=== PATIENT | female | born 1970 | race Caucasian/White ===

== ENCOUNTER 2017-04-03 13:14 | Emergency (ER) | payer OTHER ==
[~2017-04-03] VITALS: Ht 167.6 cm; Wt 80.8 kg
[~2017-04-03 13:14] MED LIST: BUPR1SUB SL; LAMO150T PO; MEDLIST; UNABLE
[2017-04-03 13:24] VITALS: TEMP 36.8; Ht 167.6 cm; Wt 80.8 kg
[2017-04-03] MEDS ORDERED: BUPR1SUB23 PEG (13:57)
[2017-04-03] MEDS ORDERED: PHEN37.585 PO (13:57)
--- NOTE | 2017-04-03 14:11 | EMERGENCY ROOM VISIT NOTE ---
History First contact with patient: 13:54 Chief Complaint: FLANK PAIN Stated Complaint: RIGHT SIDE PAIN History of Present Illness The patient is a 46 year old female who presents to the Emergency Room with complaints of right-sided abdominal pain that started yesterday morning. She describes as a sharp, stabbing sensation that is constant in the right side of her abdomen radiating to her back. She denies any nausea or vomiting. No fever or chills. She does suffer with from constipation. She is unsure of her last bowel movement. She has not taken anything for pain. She denies any urinary symptoms. Review of Systems 10 system review performed and negative unless noted in HPI or below Past Medical/Surgical History History of drug abuse Social History Smoking Status: Current Every Day Smoker Current/Historical Medications Scheduled Buprenorphine Hcl-Naloxone Hcl (Suboxone 8-2 Mg), 1 TAB PEG BID Phentermine Hcl (Adipex P), 37.5 MG PO DAILY Scheduled PRN Oxycodone Ir (Roxicodone Ir), 1-2 TAB PO Q4H PRN for Pain Physical Exam Vital Signs Date Time Temp Pulse Resp B/P (MAP) Pulse Ox O2 Delivery O2 Flow Rate FiO2 04/03/17 19:59 84 20 132/78 98 Room Air 04/03/17 19:16 74 18 118/70 99 Room Air 04/03/17 17:42 97 20 115/80 97 Room Air 04/03/17 15:45 102 20 120/81 98 Room Air 04/03/17 13:24 36.8 106 22 117/81 98 Room Air Physical Exam GENERAL: 46-year-old female, in moderate discomfort,, SKIN: The skin was without rashes, erythema, edema, or bruising. HEAD: Normocephalic atraumatic. MOUTH: Mucous membranes slightly dry NECK: Supple without nuchal rigidity. No lymphadenopathy. Cervical spine is nontender. No JVD. HEART: Regular rate and rhythm without murmurs gallops or rubs. LUNGS: Clear to auscultation bilaterally without wheezes, rales or rhonchi. No accessory muscle use. ABDOMEN: Positive bowel sounds x 4.Soft, mild tenderness to palpation in the right upper quadrant. Tenderness to palpation noted in the right lower quadrant., without organomegaly. No guarding or rebound tenderness. No CVA tenderness bilaterally. MUSCULOSKELETAL: No muscle atrophy, erythema, or edema noted. Strength 5/5 throughout. NEURO: Patient was alert and oriented to person place and time. Normal sensation to touch. No focal neurological deficits. Medical Decision & Procedures ER Provider Diagnostic Interpretation: pelvic US MPRESSION: Large 7 x 6 cm left ovarian cyst. Normal vascular flow to both ovaries. Otherwise negative study. The above report was generated using voice recognition software. It may contain grammatical, syntax or spelling errors. Electronically signed by: Jaime Medrano M.D. 04/03/2017 6:39 PM Dictated Date/Time: 04/03/2017 6:38 PM The status of this report is Signed. Draft = Not yet reviewed or approved by Radiologist. Signed = Reviewed and approved by Radiologist. <AttendingPhy></AttendingPhy> <FamilyPhy>No Doctor, Assigned</FamilyPhy> < PrimaryPhy>No Doctor, Assigned</PrimaryPhy> <UnitNumber>[id number]</UnitNumber> <VisitNumber>[id number]</VisitNumber> <PatientName>RENE DANIELS</PatientName > <DateOfBirth>1970</DateOfBirth> <Location>[facility]</Location> <ServiceDate> 04/03/17</ServiceDate> <MNE>ESINDI</MNE> <OrderingPhy>Roseline Mckay PA-C</ OrderingPhy> <OrderingPhyMNE>f rep ord dr clement</OrderingPhyMNE> <DictatingPhyMNE> f rep dict dr clement</DictatingPhyMNE> <CCListMNE>f rep ct mne</CCListMNE> < AdmittingPhyMNE>f pt admit dr clement</AdmittingPhyMNE> <AttendingPhyMNE>f pt attend dr clement</AttendingPhyMNE> <ConsultingPhyMNE>f pt consult dr clement</ConsultingPhyMNE> <FamilyPhyMNE>f pt fam dr clement</FamilyPhyMNE> <OtherPhyMNE>f pt other dr clement</OtherPhyMNE> < PrimaryPhyMNE>f pt prim care dr clement</PrimaryPhyMNE> <ReferringPhyMNE>f pt referring dr clement</ReferringPhyMNE> GB US IMPRESSION: Dilated common bile duct with possible internal debris, however, no evidence of gallstones or sonographic evidence of intrahepatic biliary ductal dilatation. MRCP could be considered for further evaluation if clinically indicated. Electronically signed by: Claudio Evans M.D. 04/03/2017 3:51 PM Dictated Date/Time: 04/03/2017 3:49 PM The status of this report is Signed. Draft = Not yet reviewed or approved by Radiologist. Signed = Reviewed and approved by Radiologist. <AttendingPhy></AttendingPhy> <FamilyPhy>No Doctor, Assigned</FamilyPhy> < PrimaryPhy>No Doctor, Assigned</PrimaryPhy> <UnitNumber>[id number]</UnitNumber> <VisitNumber>[id number]</VisitNumber> <PatientName>RENE DANIELS</PatientName > <DateOfBirth>1970</DateOfBirth> <Location>[facility]</Location> <ServiceDate> 04/03/17</ServiceDate> <MNE>ESINDI</MNE> <OrderingPhy>Roseline Mckay PA-C</ OrderingPhy> <OrderingPhyMNE CT abdomen and pelvis IMPRESSION: 1. Large cyst and/or cystic mass in left ovary measuring 8 x 6 cm. 2. Close DELI DEPARTMENT MANAGER follow-up is indicated to exclude any possibility of a cystic neoplastic process. 3. All remaining components of the study are unremarkable. 4. Normal appendix. 5. Moderate increase in fecal load within the cecum. The above report was generated using voice recognition software. It may contain grammatical, syntax or spelling errors. Electronically signed by: Jaime Medrano M.D. 04/03/2017 5:01 PM Dictated Date/Time: 04/03/2017 4:55 PM The status of this report is Signed. Draft = Not yet reviewed or approved by Radiologist. Signed = Reviewed and approved by Radiologist. <AttendingPhy></AttendingPhy> <FamilyPhy>No Doctor, Assigned</FamilyPhy> < PrimaryPhy>No Doctor, Assigned</PrimaryPhy> <UnitNumber>[id number]</UnitNumber> <VisitNumber>[id number]</VisitNumber> <PatientName>RENE DANIELS</PatientName > <DateOfBirth>1970</DateOfBirth> <Location>[facility]</Location> <ServiceDate> 04/03/17</ServiceDate> <MNE>ESINDI</MNE> <OrderingPhy>Roseline Mckay AMADEO</ OrderingPhy> <OrderingPhyMNE>f rep ord dr clement</OrderingPhyMNE> <DictatingPhyMNE> f rep dict dr clement</DictatingPhyMNE> <CCListMNE>f rep ct mne</CCListMNE> < AdmittingPhyMNE>f pt admit dr clement</AdmittingPhyMNE> <AttendingPhyMNE>f pt attend dr clement</AttendingPh Laboratory Results 04/03/17 14:25 Red Blood Count 4.34, Mean Corpuscular Volume 87.1, Mean Corpuscular Hemoglobin 30.0, Mean Corpuscular Hemoglobin Concent 34.4, Mean Platelet Volume 13.0, Neutrophils (%) (Auto) 73.1, Lymphocytes (%) (Auto) 16.7, Monocytes (%) (Auto) 9.3, Eosinophils (%) (Auto) 0.5, Basophils (%) (Auto) 0.3, Neutrophils # (Auto) 5.64, Lymphocytes # (Auto) 1.29, Monocytes # (Auto) 0.72, Eosinophils # (Auto) 0.04, Basophils # (Auto) 0.02 04/03/17 14:25 04/03/17 16:07 Test 04/03/17 14:25 04/03/17 14:37 04/03/17 16:07 White Blood Count 7.72 K/uL (4.8-10.8) Red Blood Count 4.34 M/uL (4.2-5.4) Hemoglobin 13.0 g/dL (12.0-16.0) Hematocrit 37.8 % (37-47) Mean Corpuscular Volume 87.1 fL (80-100) Mean Corpuscular Hemoglobin 30.0 pg (25-34) Mean Corpuscular Hemoglobin Concent 34.4 g/dl (32-36) Platelet Count 132 K/uL (130-400) Mean Platelet Volume 13.0 fL (7.4-10.4) Neutrophils (%) (Auto) 73.1 % Lymphocytes (%) (Auto) 16.7 % Monocytes (%) (Auto) 9.3 % Eosinophils (%) (Auto) 0.5 % Basophils (%) (Auto) 0.3 % Neutrophils # (Auto) 5.64 K/uL (1.4-6.5) Lymphocytes # (Auto) 1.29 K/uL (1.2-3.4) Monocytes # (Auto) 0.72 K/uL (0.11-0.59) Eosinophils # (Auto) 0.04 K/uL (0-0.5) Basophils # (Auto) 0.02 K/uL (0-0.2) RDW Standard Deviation 43.8 fL (36.4-46.3) RDW Coefficient of Variation 13.7 % (11.5-14.5) Immature Granulocyte % (Auto) 0.1 % Immature Granulocyte # (Auto) 0.01 K/uL (0.00-0.02) Platelet Estimate DECREASED Anion Gap 5.0 mmol/L (3-11) Est Creatinine Clear Calc Drug Dose 115.2 ml/min Estimated GFR () 122.3 Estimated GFR (Non- 105.5 BUN/Creatinine Ratio 17.2 (10-20) Calcium Level 8.9 mg/dl (8.5-10.1) Total Bilirubin 0.8 mg/dl (0.2-1) Alanine Aminotransferase (ALT/SGPT) 23 U/L (12-78) Alkaline Phosphatase 81 U/L (45-117) Total Protein 7.5 gm/dl (6.4-8.2) Albumin 3.4 gm/dl (3.4-5.0) Globulin 4.1 gm/dl (2.5-4.0) Albumin/Globulin Ratio 0.8 (0.9-2) Lipase 15 U/L (73-393) Human Chorionic Gonadotropin, Qual NEG (NEG) Urine Color DK YELLOW Urine Appearance CLOUDY (CLEAR) Urine pH 5.5 (4.5-7.5) Urine Specific [place] 1.028 (1.000-1.030) Urine Protein TRACE (NEG) Urine Glucose (UA) NEG (NEG) Urine Ketones 1+ (NEG) Urine Occult Blood NEG (NEG) Urine Nitrite NEG (NEG) Urine Bilirubin NEG (NEG) Urine Urobilinogen NEG (NEG) Urine Leukocyte Esterase SMALL (NEG) Urine WBC (Auto) 5-10 /hpf (0-5) Urine RBC (Auto) 0-4 /hpf (0-4) Urine Hyaline Casts (Auto) 5-10 /lpf (0-5) Urine Epithelial Cells (Auto) >30 /lpf (0-5) Urine Bacteria (Auto) 2+ (NEG) Urine Renal Epithelial Cells /lpf (0-5) Urine Pathogenic Casts /lpf (0) Aspartate Amino Transf (AST/SGOT) 11 U/L (15-37) Medications Administered Medications (Trade) Dose Ordered Sig/Ida Route Start Time Stop Time Status Last Admin Dose Admin Sodium Chloride 1,000 ml @ 999 mls/hr Q1H1M ONCE IV 04/03/17 14:15 04/03/17 15:15 DC 04/03/17 14:15 999 MLS/HR Morphine Sulfate (MoRPHine SULFATE INJ) 4 mg Q1H PRN IV 04/03/17 14:15 04/03/17 20:29 DC 04/03/17 15:11 4 MG Ondansetron HCl (Zofran Inj) 4 mg Q2H PRN IV 04/03/17 14:15 04/03/17 20:29 DC 04/03/17 15:09 4 MG Hydromorphone HCl (Dilaudid Inj) 1 mg ONE ONCE IV 04/03/17 17:45 04/03/17 17:46 DC 04/03/17 17:41 1 MG Hydromorphone HCl (Dilaudid Inj) 1 mg ONE ONCE IV 04/03/17 19:15 04/03/17 19:16 DC 04/03/17 19:26 1 MG Oxycodone HCl (Roxicodone Immediate Rel 5MG Home Pack) 1 homepack UD ONCE PO 04/03/17 19:30 04/03/17 19:31 DC 04/03/17 19:52 1 HOMEPACK ED Course Patient was seen and examined Vital signs including blood pressure were reviewed medications list was verified with patient Labs were obtained, and a saline lock was established The patient was medicated with morphine and Zofran. She was hydrated with 1 L normal saline. Upon reevaluation, the patient was still complaining of pain. She was given Dilaudid 1 mg IV. Her workup was reviewed with them supervising physician. Upon reassessment, her pain was slightly improved, however she was requesting more pain medication. She was given another dose of Dilaudid. The case was discussed with Dr. Richard from [facility]. I discussed disposition options with the patient. She is comfortable being discharged home with pain medication. The patient was given a home pack of oxycodone I reviewed discharge instructions the patient. They voiced understanding and had no further questions. Medical Decision DIFFERENTIAL DIAGNOSIS: Gastroenteritis, Hepatitis, cholecystitis, cholangitis, biliary colic, pancreatitis, appendicitis, inguinal hernia, nephrolithiasis, inflammatory bowel disease, mesenteric adenitis, peptic ulcer disease, GERD, gastritis, pancreatitis,, bowel obstruction, splenic infarct, diverticulitis, mesenteric ischemia, metabolic, peritonitis, ectopic , ovarian cysts/ torsion uterine fibroids among others. This patient is a 46-year-old female presents to emergency department with right -sided abdominal pain. On exam, she was moderately uncomfortable. She was tender in the right lower quadrant. Her labs reveal no leukocytosis. Liver functions within normal limits. They ordered an ultrasound of the gallbladder and a CT scan. This revealed a large left-sided ovarian cyst. I ordered an ultrasound to confirm vascular flow to the ovaries. There were no signs of vascular compromise to the ovaries on the ultrasound. The case was discussed with supervising physician and [facility] on-call. I also discussed disposition options with the patient. I believe she is stable to be discharged home with very close follow-up. This was emphasized greatly. The patient will see the OB /DELI DEPARTMENT MANAGER doctor on Thursday morning. She was also cautioned to return to the emergency department immediately with any new or worsening symptoms. This chart was completed in part utilizing [employer] Speech Voice Recognition software. Attempts were made to minimize the grammatical errors, random word insertions, pronoun errors and incomplete sentences. Any formal questions or concerns about the content, text or information contained within the body of this dictation should be directly addressed to the provider for clarification. Medication Reconcilliation Current Medication List: was personally reviewed by me Blood Pressure Screening Patient's blood pressure: Normal blood pressure Impression Primary Impression: Ovarian cyst Departure Information Dispostion Home / Self-Care Condition FAIR Prescriptions Oxycodone Ir (Roxicodone Ir) 5 Mg Tab 1-2 TAB PO Q4H Y for Pain, #15 TAB For Initial Treatment Prov: Roseline Mckay PA-C 04/03/17 Referrals No Doctor, Assigned (PCP) Terrell Richard M.D. Patient Instructions ED Cyst Ovarian, My [facility] Additional Instructions You has been evaluated in the emergency department for abdominal pain. This is likely due to a large ovarian cyst. It is very important to have close follow-up with the [facility] doctor. They will see you in the office on Thursday. Please call Thursday morning at 8:30 for a follow-up appointment. A number has been provided. Ibuprofen 600 mg and/or Tylenol 1000 mg every 8 hours for pain You may also alternate these medications for more effective pain relief: Ibuprofen --4 HRS--> Tylenol --4 HRS--> ibuprofen --4 HRS--> Tylenol .... Oxycodone Immediate Release (OxyIR) 5mg: Take 1-2 pills every four hours for pain. Avoid alcohol, operating machinery or dangerous equipment, working on ladders or roofs, DRIVING, or situations where being under the influence may be dangerous. It is recommended to use an fcyv-cac-erfckli stool softener such as Colace, 100mg twice daily while taking this medication to avoid constipation. Please do not hesitate to return immediately to the emergency department with any new, worsening or concerning symptoms; especially, increased pain, dizziness , lightheadedness, difficulty breathing or pain in your chest Work Instructions Return To Work: 2 days
[2017-04-03] MEDS ORDERED: SODIUM CHLORIDE 0.9% 1000ML 1,000 ML IV ONE (14:15)
[2017-04-03] MEDS ORDERED: MoRPHine SULFATE 4 MG/ML 1 ML CARP\\VIAL IV PRN (14:15)
[2017-04-03] MEDS ORDERED: ONDANSETRON INJ 2 MG/ML 2 ML VIAL IV PRN (14:15)
[2017-04-03 14:38] LABS: MEAN CORPUSCULAR HGB CONC 34.4 g/dl (32-36)
[2017-04-03 14:55] LABS: HEMATOCRIT 37.8 % (37-47); MEAN CELL VOLUME 87.1 fL (80-100); RED CELL DISTRIBUTION WIDTH CV 13.7 % (11.5-14.5); RED CELL DISTRIBUTION WIDTH SD 43.8 fL (36.4-46.3); WHITE BLOOD COUNT 7.72 K/uL (4.8-10.8)
[2017-04-03 15:01] LABS: PLATELET COUNT 132 K/uL (130-400)
[2017-04-03 15:02] LABS: BASO % 0.3 %; BASO ABS # 0.02 K/uL (0-0.2); EOS % 0.5 %; EOS ABS # 0.04 K/uL (0-0.5); IG# 0.01 K/uL (0.00-0.02); LYMPH % 16.7 %; LYMPH ABS # 1.29 K/uL (1.2-3.4); MONO % 9.3 %; MONO ABS # 0.72 K/uL (0.11-0.59); NEUT % 73.1 %; NEUT ABS # 5.64 K/uL (1.4-6.5)
[2017-04-03 15:05] LABS: ALBUMIN 3.4 gm/dl (3.4-5.0); CALCIUM 8.9 mg/dl (8.5-10.1); CREATININE 0.64 mg/dl (0.60-1.20); TOTAL PROTEIN 7.5 gm/dl (6.4-8.2)
--- NOTE | 2017-04-03 15:53 | DIAGNOSTIC IMAGING REPORT ---
GALLBLADDER-ABD LIMITED CLINICAL HISTORY: 46 years-old Female presenting with R sided abd pain. TECHNIQUE: Real-time grayscale and limited color Doppler ultrasound imaging of the abdomen limited to the right upper quadrant was performed. COMPARISON: None. FINDINGS: Pancreas: Visualized portions of the pancreatic head and body normal. Liver: Normal echogenicity and echotexture. The liver measures 16.7 cm in maximal sagittal dimension. No sonographic evidence of hepatic mass. Main portal vein patent with normal directional flow. Biliary: No intrahepatic biliary ductal dilatation. Common bile duct measures up to 10 mm in diameter. Hypoechogenic debris appears to distend the common duct. Gallbladder: No evidence of gallstones, gallbladder wall thickening, gallbladder distention, or pericholecystic fluid or inflammatory change. Right kidney: Normal in appearance. No hydronephrosis. Ascites: None. IMPRESSION: Dilated common bile duct with possible internal debris, however, no evidence of gallstones or sonographic evidence of intrahepatic biliary ductal dilatation. MRCP could be considered for further evaluation if clinically indicated. Electronically signed by: Claudio Evans M.D. 04/03/2017 3:51 PM Dictated Date/Time: 04/03/2017 3:49 PM
[2017-04-03 16:35] LABS: POTASSIUM 3.7 mmol/L (3.5-5.1)
[2017-04-03] MEDS ORDERED: OPTIRAY 320 IV PRN (17:00)
--- NOTE | 2017-04-03 17:02 | DIAGNOSTIC IMAGING REPORT ---
ABD/PELVIS IV AND ORAL CONT CT DOSE: 774.35 mGy.cm HISTORY: Flank pain R sided abd pain ? appy TECHNIQUE: Multiaxial CT images of the abdomen and pelvis were performed following the use of intravenous and oral contrast. A dose lowering technique was utilized adhering to the principles of ALARA. COMPARISON STUDY: None. FINDINGS: The lung bases are clear. The liver, spleen, gallbladder, pancreas, kidneys, and adrenal glands are within normal limits. No bowel wall thickening or obstruction. Visualized components of the appendix are unremarkable. There is a cystic lesion of the left ovary measuring 8 x 6 cm. This should be followed and/or evaluated closely. There is increased fecal load within the cecum which is in the lower right pelvis. There is no evidence of bowel obstructive change. There are several small reactive mesenteric nodes. There is no abdominal or pelvic ascites. IMPRESSION: 1. Large cyst and/or cystic mass in left ovary measuring 8 x 6 cm. 2. Close CODING TECHNICIAN follow-up is indicated to exclude any possibility of a cystic neoplastic process. 3. All remaining components of the study are unremarkable. 4. Normal appendix. 5. Moderate increase in fecal load within the cecum. The above report was generated using voice recognition software. It may contain grammatical, syntax or spelling errors. Electronically signed by: Jaime Medrano M.D. 04/03/2017 5:01 PM Dictated Date/Time: 04/03/2017 4:55 PM
[2017-04-03] MEDS ORDERED: HYDROmorphone INJ 1 MG/ML SYR IV ONE ×2 (17:45→19:15)
--- NOTE | 2017-04-03 18:40 | DIAGNOSTIC IMAGING REPORT ---
PELVIC COMPLETE NON OB CLINICAL HISTORY: large R ovarian cyst ? torsion PAIN COMPARISON STUDY: CT same date FINDINGS: The uterus measured 7.4 cm. The endometrial stripe measured 2 mm. The right ovary measured 2.6 cm maximum dimension with normal vascular flow. The left ovary measured 7 x 6 cm cyst. Normal vascular flow.. There is no ultrasonographic evidence of ovarian torsion. It should be noted that ovarian torsion can be present with normal Doppler ultrasonographic findings. There was no evidence of pathologic free pelvic fluid. IMPRESSION: Large 7 x 6 cm left ovarian cyst. Normal vascular flow to both ovaries. Otherwise negative study. The above report was generated using voice recognition software. It may contain grammatical, syntax or spelling errors. Electronically signed by: Jaime Medrano M.D. 04/03/2017 6:39 PM Dictated Date/Time: 04/03/2017 6:38 PM
[2017-04-03] MEDS ORDERED: OXYCODONE IR HOME PACK PO ONE (19:30)
[2017-04-03] MEDS ORDERED: OXYC1TAB3 PO (19:33)
[2017-04-03 19:59] VITALS: BP 132/78; PULSE 84; O2SAT 98
== END 2017-04-03 20:00 | disposition home or self-care (01) ==
LOC: C.EDB 13:19 → C.EDA 20:00
DX: N83.202 Unspecified ovarian cyst, left side (principal); F17.200 Nicotine dependence, unspecified, uncomplicated; Z79.891 Long term (current) use of opiate analgesic

== ENCOUNTER 2017-06-19 10:21 | Emergency (ER) | payer OTHER ==
[~2017-06-19] VITALS: Ht 167.6 cm; Wt 77.5 kg
[~2017-06-19 10:21] MED LIST changes: -BUPR1SUB SL; +BUPR1SUB23 PO; -LAMO150T PO; -MEDLIST; +OXYC1TAB3 PO; +PHEN37.585 PO; -UNABLE
[2017-06-19 10:24] VITALS: Ht 167.6 cm; Wt 77.5 kg
[2017-06-19] MEDS ORDERED: CEFTRIAXONE SOD INJ 1 GM ADDVIAL IV STA (10:59)
[2017-06-19 11:24] LABS: BASO % 0.5 %; BASO ABS # 0.03 K/uL (0-0.2); EOS % 1.4 %; EOS ABS # 0.09 K/uL (0-0.5); HEMATOCRIT 36.6 % (37-47); HEMOGLOBIN 12.4 g/dL (12.0-16.0); IG# 0.01 K/uL (0.00-0.02); LYMPH % 22.7 %; LYMPH ABS # 1.47 K/uL (1.2-3.4); MEAN CELL VOLUME 86.1 fL (80-100); MEAN CORPUSCULAR HEMOGLOBIN 29.2 pg (25-34); MEAN CORPUSCULAR HGB CONC 33.9 g/dl (32-36); MEAN PLATELET VOLUME 11.9 fL (7.4-10.4); MONO ABS # 0.39 K/uL (0.11-0.59); NEUT % 69.2 %; NEUT ABS # 4.49 K/uL (1.4-6.5); PLATELET COUNT 130 K/uL (130-400); RED CELL DISTRIBUTION WIDTH CV 15.1 % (11.5-14.5); WHITE BLOOD COUNT 6.48 K/uL (4.8-10.8)
[2017-06-19 11:42] LABS: CREATININE 0.62 mg/dl (0.60-1.20); POTASSIUM 3.8 mmol/L (3.5-5.1)
[2017-06-19] MEDS ORDERED: CEPH500C2 PO (11:56)
--- NOTE | 2017-06-19 11:57 | EMERGENCY ROOM VISIT NOTE ---
History First contact with patient: 10:55 Chief Complaint: INFECTION Stated Complaint: ABCESS IN LEFT ARM Nursing Triage Summary: Patient with redness and swelling to left AC area x2 days, pt admitted to injecting meth. History of Present Illness The patient is a 46 year old female who presents to the Emergency Room with complaints of redness and swelling to the left antecubital area. The patient states that she injected meth into the left antecubital area on Thursday. She states she is a clean needle. She states yesterday she noticed redness and swelling to the area. The patient denies any streaking up the arm or any fever. Patient denies any chest pain or shortness of breath. Review of Systems 10 system review was performed and was negative unless stated otherwise history of present illness. Past Medical/Surgical History IV drug abuse Social History Smoking Status: Current Every Day Smoker Drug Use: other (meth) Housing Status: lives alone Occupation Status: unemployed Current/Historical Medications Scheduled Buprenorphine Hcl-Naloxone Hcl (Suboxone 8-2 Mg), 1 TAB PO BID Physical Exam Vital Signs Date Time Temp Pulse Resp B/P (MAP) Pulse Ox O2 Delivery O2 Flow Rate FiO2 06/19/17 10:24 36.8 88 18 157/100 98 Room Air Physical Exam GENERAL: 46-year-old female appears in no acute distress. MENTAL Status: Alert and oriented 3. NECK: Supple, no lymphadenopathy noted. No carotid bruits noted. LUNGS: Clear auscultation without wheezes rales or rhonchi. CARDIAC: Regular rate and rhythm without murmur. Pulses is full and equal throughout. LEFT UPPER EXTREMITY: There is a erythematous palpable lump in the left antecubital area without any fluctuance or pointing. It is warm to the touch and is tender to palpation. There is no streaking up the arm. Medical Decision & Procedures Laboratory Results 06/19/17 11:10 Red Blood Count 4.25, Mean Corpuscular Volume 86.1, Mean Corpuscular Hemoglobin 29.2, Mean Corpuscular Hemoglobin Concent 33.9, Mean Platelet Volume 11.9, Neutrophils (%) (Auto) 69.2, Lymphocytes (%) (Auto) 22.7, Monocytes (%) (Auto) 6.0, Eosinophils (%) (Auto) 1.4, Basophils (%) (Auto) 0.5, Neutrophils # (Auto) 4.49, Lymphocytes # (Auto) 1.47, Monocytes # (Auto) 0.39, Eosinophils # (Auto) 0.09, Basophils # (Auto) 0.03 06/19/17 11:10 Test 06/19/17 11:10 White Blood Count 6.48 K/uL (4.8-10.8) Red Blood Count 4.25 M/uL (4.2-5.4) Hemoglobin 12.4 g/dL (12.0-16.0) Hematocrit 36.6 % (37-47) Mean Corpuscular Volume 86.1 fL (80-100) Mean Corpuscular Hemoglobin 29.2 pg (25-34) Mean Corpuscular Hemoglobin Concent 33.9 g/dl (32-36) Platelet Count 130 K/uL (130-400) Mean Platelet Volume 11.9 fL (7.4-10.4) Neutrophils (%) (Auto) 69.2 % Lymphocytes (%) (Auto) 22.7 % Monocytes (%) (Auto) 6.0 % Eosinophils (%) (Auto) 1.4 % Basophils (%) (Auto) 0.5 % Neutrophils # (Auto) 4.49 K/uL (1.4-6.5) Lymphocytes # (Auto) 1.47 K/uL (1.2-3.4) Monocytes # (Auto) 0.39 K/uL (0.11-0.59) Eosinophils # (Auto) 0.09 K/uL (0-0.5) Basophils # (Auto) 0.03 K/uL (0-0.2) RDW Standard Deviation 48.0 fL (36.4-46.3) RDW Coefficient of Variation 15.1 % (11.5-14.5) Immature Granulocyte % (Auto) 0.2 % Immature Granulocyte # (Auto) 0.01 K/uL (0.00-0.02) Anion Gap 4.0 mmol/L (3-11) Est Creatinine Clear Calc Drug Dose 116.6 ml/min Estimated GFR () 123.6 Estimated GFR (Non- 106.6 BUN/Creatinine Ratio 11.4 (10-20) Calcium Level 9.0 mg/dl (8.5-10.1) Chemistry Specimen Hemolysis Medications Administered Medications (Trade) Dose Ordered Sig/Ida Route Start Time Stop Time Status Last Admin Dose Admin Ceftriaxone Sodium (Rocephin Inj) 1 gm NOW STAT IV 06/19/17 10:59 06/19/17 11:05 DC 06/19/17 11:18 1 GM ED Course She was evaluated. IV access was obtained. CBC and differential and renal profile was ordered. The patient was given Rocephin 1 g IV. Labs are reviewed. The patient's white count was normal. The patient was informed of the findings. The patient was discharged home in stable condition. Medical Decision Differential diagnosis include abscess, cellulitis, lymphangitis Medication Reconcilliation Current Medication List: was personally reviewed by va Blood Pressure Screening Patient's blood pressure: Elevated blood pressure Blood pressure disposition: Referred to PCP Impression Primary Impression: Cellulitis Departure Information Dispostion Home / Self-Care Condition GOOD Prescriptions Cephalexin Monohydrate (KEFLEX) 500 Mg Cap 500 MG PO QID for 10 Days, #40 CAP Prov: Radha Medrano PA-C 06/19/17 Referrals No Doctor, Assigned (PCP) Forms HOME CARE DOCUMENTATION FORM, IMPORTANT VISIT INFORMATION, WORK / SCHOOL INSTRUCTIONS Patient Instructions Cellulitis - [facility], [facility] Additional Instructions Take Keflex as prescribed. Watch area closely for worsening infection. Warm compresses to the affected area frequently. If symptoms worsen such as increased redness, streaking up the arm return to the ER immediately otherwise follow-up with your family doctor on Thursday for recheck. At this time I would also like your family doctor to recheck your blood pressure since it was elevated at today's emergency room visit. Problem Qualifiers Primary Impression: Cellulitis Site of cellulitis: extremity Site of cellulitis of extremity: upper extremity Laterality: left Qualified Codes: L03.114 - Cellulitis of left upper limb
[2017-06-19 12:11] VITALS: BP 132/84; PULSE 64; TEMP 36.8; O2SAT 97
== END 2017-06-19 12:13 | disposition home or self-care (01) ==
LOC: C.EDB 10:22
DX: L03.114 Cellulitis of left upper limb (principal); F19.10 Other psychoactive substance abuse, uncomplicated; F17.210 Nicotine dependence, cigarettes, uncomplicated

== ENCOUNTER 2020-11-04 22:39 | Inpatient (IN) ==
[2020-11-04 23:22] LABS: Appearance Urine Cloudy (Clear); Bacteria Urine Automated 1+ (Negative); Blood Urine Trace (Negative); Color Urine Dark Yellow; Epithelial Cell Urine Auto >30 /lpf (0-5); Glucose Urine UA Negative (Negative); Ketones Urine Trace (Negative); Leukocyte Esterase Urine Negative (Negative); Nitrite Urine Negative (Negative); Protein Urine 1+ (Negative); Specific Gravity Urine 1.038 (1.000-1.030); Urobilinogen Urine Negative (Negative); pH Urine 5.5 (4.5-7.5)
[2020-11-04 23:23] LABS: Bilirubin Urine 1+ (Negative)
[2020-11-04 23:36] LABS: Calcium Oxalate Crystals Urine Present (None Prsent)
[2020-11-04 23:38] LABS: Amphetamines+Metham, Urine Neg (Neg); Barbiturates, Urine Neg (Neg); Benzodiazepine, Urine Neg (Neg); Cocaine, Urine Neg (Neg); MDMA (Ecstacy), Urine Neg (Neg); Methadone, Urine Neg (Neg); Opiate, Urine Neg (Neg); Phencyclidine, Urine Neg (Neg)
[2020-11-04 23:55] LABS: Basophils # (auto) 0.04 K/uL (0-0.2); Basophils % (auto) 0.3 %; Eosinophils # (auto) 0.05 K/uL (0-0.5); Eosinophils % (auto) 0.4 %; Hematocrit (blood only) 39.6 % (37-47); Hemoglobin 13.6 g/dL (12.0-16.0); Immature Granulocytes # (auto) 0.02 K/uL (0.00-0.02); Immature Granulocytes % (auto) 0.2 %; Lymphocytes # (auto) 2.97 K/uL (1.2-3.4); Lymphocytes % (auto) 23.3 %; Mean Corpuscular Hemoglobin 30.4 pg (25-34); Mean Corpuscular Hgb Conc 34.3 g/dL (32-36); Mean Corpuscular Volume 88.4 fL (80-100); Mean Platelet Volume 13.4 fL (7.4-10.4); Monocytes % (auto) 7.9 %; Neutrophils # (auto) 8.65 K/uL (1.4-6.5); Neutrophils % (auto) 67.9 %; Platelet Count 193 K/uL (130-400); RDW Coefficient of Variation 14.5 % (11.5-14.5); RDW Standard Deviation 46.9 fL (36.4-46.3); Red Blood Count 4.48 M/uL (4.2-5.4); White Blood Count 12.73 K/uL (4.8-10.8)
[2020-11-05 00:13] LABS: Albumin Level 4.1 gm/dl (3.4-5.0); BUN Creatinine Ratio 13.3 (10-20); Calcium 8.5 mg/dl (8.5-10.1); Creatinine Clr Calc Pharmacy 72.3 ml/min; Est GFR (Non-African American) 71.6 ml/min; Potassium 3.1 mmol/L (3.5-5.1)
[2020-11-05 00:24] LABS: Albumin Globulin Ratio 1.2 (0.9-2); Bilirubin,Total 0.2 mg/dl (0.2-1); Globulin 3.3 gm/dl (2.5-4.0); Thyroid Stimulating Hormone 0.979 uIu/ml (0.300-4.500); Total Protein 7.4 gm/dl (6.4-8.2)
[2020-11-05 00:26] LABS: Salicylate 4.7 mg/dl (2.8-20)
[2020-11-05] MEDS ORDERED: XYLOCAINE 1%/SOD BICARB 20 ML VIAL INFIL ONE (00:36)
[2020-11-05] MEDS ORDERED: POTASSIUM CHLORIDE CRTAB 20 MEQ TABCR PO STA (00:36)
--- NOTE | 2020-11-05 01:37 | Emergency Department Note ---
ED Visit Note Laceration Repair Location: Left wrist Total length: 6 cm Complexity: Simple Verbal consent was obtained after the risks and benefits were explained, including but not limited to bleeding, scarring, infection, pain, and bone/joint/nerve damage. At this time, the risks of the procedure are less than the risks of NOT performing the procedure. A time out was taken and the correct patient and site identified. The skin was prepped with betadine. The target area was anesthetized with 3 ml of 1% lidocaine without epinephrine. Copious irrigation was performed using nss. The skin was re-prepped with betadine and a sterile field set. The wound was explored for foreign bodies and none found. Examination revealed no injury to deep structures such as tendons, bone, or significant blood vessels. Debridement was not performed. The wound edges were approximated using 6, 4-0 simple interrupted nylon sutures. Hemostasis and excellent approximation was achieved. Antibacterial ointment and a sterile dressing applied. Detailed wound care instructions and signs and symptoms of infection reviewed with the pt. No complications and the patient tolerated the procedure well. .
[2020-11-05 01:40] LABS: Pregnancy Test, Urine Negative (Negative)
[2020-11-05] MEDS ORDERED: BISMUTH SUBSALICYLATE LIQD 236 ML PO PRN (05:25)
[2020-11-05] MEDS ORDERED: ALUMINUM/MAGNESIUM SUSP 30 ML UDC PO PRN (05:25)
[2020-11-05] MEDS ORDERED: MAGNESIUM HYDROXIDE SUSP 30 ML UDC PO PRN (05:25)
[2020-11-05] MEDS ORDERED: hydrOXYzine HCl 25 MG TAB PO PRN ×2 (05:25)
[2020-11-05] MEDS ORDERED: SODIUM CHLORIDE 0.65% NA SOLN 45 ML (OCEAN) PRN (05:25)
[2020-11-05] MEDS ORDERED: ACETAMINOPHEN 325 MG TAB PO PRN (05:25)
--- NOTE | 2020-11-05 07:55 | Emergency Department Note ---
Impression & Plan Suicide attempt by cutting of wrist Admit to [facility] ED Provider Note NAME: RENE DANIELS AGE: 50 SEX: F ARRIVES VIA: Ambulance INFORMANT: Patient ED PROVIDER(S): Jessica Wiley DO CHIEF COMPLAINT: Wrist lacerations PLAN: Disposition: Admit to [facility]. Condition: Stable MEDICAL DECISION MAKING: This is a 50-year-old female patient who had a disagreement with her neighbors a nd went out into the [facility] as she describes it to cut herself with a kitchen knife. She wandered back to the roadway and flagged down a passerby. At that time, 911 was called and the state police arrived on scene noting that the patient was significantly bleeding from her left forearm. The bleeding was controlled with quick clot and a pressure bandage. Transported here for evaluation. The patient was medically cleared. The wounds were cleansed and repaired. The 302 was endorsed as this was interpreted as an act of furtherance. The case was discussed with the mental health liaison from [facility]. and they will take her on their floor Triage Nursing notes reviewed and agree with them. Prior medical records reviewed Vital Signs: reviewed and remarkable for hypertension The patient is vaccinated. [facility] bath salt abuse Differential diagnosis: Anemia, self-injurious behavior, suicide attempt, alcohol intoxication ER treatment provided: Suture repair to wrist lacerations-see Valeri Carrillo PA-C dictation for procedure note Diagnostics interpreted by me: Laboratory studies: See below HPI: 50/F arrives for evaluation of bilateral wrist lacerations. Patient explains that she has had some problems with her neighbors. She was drinking [employer] [place] cream tonight when she went out into the [facility] with a kitchen knife and cut her wrists. Upon presentation to the ER, the patient states that she is ashamed now of what she did. ROS: See above HPI for pertinent positives & negatives. A total of 10 systems reviewed and were otherwise negative. PAST MEDICAL HISTORY:See Below PAST SURGICAL HISTORY:See Below FAMILY HISTORY:See Below SOCIAL HISTORY:The patient is unemployed; she lives alone; she admits to alcohol use. HOME MEDICATIONS:See list ALLERGIES:None VITALS:See Below PHYSICAL EXAMINATION: HEENT: Head - normocephalic and atraumatic. Pupils are equal, round, and reactive to light. Extraocular eye muscles are intact, and sclera are anicteric. Nose - moist nasal mucosa without discharge. Mouth - moist buccal mucosa. Oropharynx is nonerythematous and there is no tonsillar exudate or edema noted. Neck: Supple; no cervical lymphadenopathy or JVD Heart: Regular rate and rhythm. There is a normal S1 and S2 with no murmurs, clicks, or gallops appreciated. Lungs: Clear to auscultation bilaterally with no wheezes, rales, or rhonchi. Abdomen: Soft, completely nontender, nondistended, with good bowel sounds. There are no palpable pulsatile masses or hepatosplenomegaly. There is no guarding, rigidity, or rebound noted. Extremities: Patient has a fairly deep 6 cm laceration to the ventral left wrist with a superficial laceration proximal to that. She also has a superficial laceration to the right wrist. Skin: Pale, warm and dry with good turgor and no rashes. ED COURSE: Times/Reassessments: 2345:: The patient was evaluated in room A 8. A complete history and physical was performed. Laboratory studies were drawn as above. A urine specimen was obtained. The bandages were removed from the wrist including the quick clot. They were rebandaged until the wounds could be cleansed, irrigated and repaired. I reviewed the 302 petition and this was upheld as the patient clearly had an act of furtherance. Jessica Wiley DO Past Med/Surg History Medical History (Updated 11/05/20 @ 17:30 by Jessica Wiley DO) IV drug user No pertinent past medical history Opiate dependence Social History Smoking Status: Current every day smoker Tobacco Type: Cigarettes Preferred Language: Greenlandic Beliefs That Will Affect Care: None Feels Safe at Home: Yes Assistive Devices: Contacts Allergies Allergies Allergy/AdvReac Type Severity Reaction Status Date / Time No Known Allergies Allergy Verified 04/03/17 13:56 Home Meds Home Medications Medication Instructions Recorded Confirmed buprenorphine 8 mg-naloxone 2 mg 1 tab SUBLINGUAL BID 04/02/18 11/04/20 sublingual film topiramate 50 mg tablet (Topamax) 100 mg PO DAILY 11/04/20 11/05/20 Results & Data (ED) Vital Signs Vital Signs - 24 hr 11/04/20 23:08 11/05/20 01:00 Temperature 37.3 C Temperature Source Oral Pulse Rate 115 H Pulse Rate [Right Finger] 89 Respiratory Rate 20 18 Respiratory Effort / Characteristics Non-Labored Spontaneous Respiratory Depth Normal Blood Pressure 169/119 H Blood Pressure [Right Arm] 138/78 Blood Pressure Mean 135 Blood Pressure Mean [Right Arm] 98 Blood Pressure Position [Right Arm] Sitting Pulse Oximetry 93 98 Oxygen Delivery Method Room Air Room Air Sepsis Recent Fever Within 48 Hours No Sepsis New/Unexplained Change in Mental Status N/A Sepsis Action Taken by Nursing No Action Required Laboratory Data Result diagrams: 11/04/20 23:38 11/04/20 23:38 Lab Results 11/04/20 11/04/20 11/04/20 Range/Units 22:58 22:58 23:38 WBC 12.73 H (4.8-10.8) K/uL RBC 4.48 (4.2-5.4) M/uL Hgb 13.6 (12.0-16.0) g/dL Hct 39.6 (37-47) % MCV 88.4 (80-100) fL MCH 30.4 (25-34) pg MCHC 34.3 (32-36) g/dL RDW Std Deviation 46.9 H (36.4-46.3) fL RDW Coeff of Pattie 14.5 (11.5-14.5) % Plt Count 193 (130-400) K/uL MPV 13.4 H (7.4-10.4) fL Immature Gran % (Auto) 0.2 % Neut % (Auto) 67.9 % Lymph % (Auto) 23.3 % Sierra % (Auto) 7.9 % Eos % (Auto) 0.4 % Baso % (Auto) 0.3 % Neut # (Auto) 8.65 H (1.4-6.5) K/uL Lymph # (Auto) 2.97 (1.2-3.4) K/uL Sierra # (Auto) 1.00 H (0.11-0.59) K/uL Eos # (Auto) 0.05 (0-0.5) K/uL Baso # (Auto) 0.04 (0-0.2) K/uL Immature Gran # (Auto) 0.02 (0.00-0.02) K/uL Sodium (136-145) mmol/L Potassium (3.5-5.1) mmol/L Chloride (98-107) mmol/L Carbon Dioxide (21-32) mmol/L Anion Gap (3-11) BUN (7-18) mg/dl Creatinine (0.6-1.2) mg/dl Est Cr Clr Drug Dosing ml/min Est GFR ( Amer) ml/min Est GFR (Non-Af Amer) ml/min BUN/Creatinine Ratio (10-20) Glucose (70-99) mg/dl Calcium (8.5-10.1) mg/dl Total Bilirubin (0.2-1) mg/dl AST (15-37) U/L ALT (12-78) U/L Alkaline Phosphatase (45-117) U/L Total Protein (6.4-8.2) gm/dl Albumin (3.4-5.0) gm/dl Globulin (2.5-4.0) gm/dl Albumin/Globulin Ratio (0.9-2) TSH (0.300-4.500) uIu/ml Urine Color Dark Yellow Urine Appearance Cloudy A (Clear) Urine pH 5.5 (4.5-7.5) Ur Specific [place] 1.038 H (1.000-1.030) Urine Protein 1+ H (Negative) Urine Glucose (UA) Negative (Negative) Urine Ketones Trace H (Negative) Urine Blood Trace H (Negative) Urine Nitrite Negative (Negative) Urine Bilirubin 1+ H (Negative) Urine Urobilinogen Negative (Negative) Ur Leukocyte Esterase Negative (Negative) Urine WBC (Auto) 5-10 H (0-5) /hpf Urine RBC (Auto) 10-30 H (0-4) /hpf U Hyaline Cast (Auto) 1-5 (0-5) /lpf U Epithel Cells (Auto) >30 H (0-5) /lpf Urine Bacteria (Auto) 1+ H (Negative) Calcium Oxalate Crystal Present A (None Prsent) Urine Test (Negative) Salicylates (2.8-20) mg/dl Urine Opiates Screen Neg (Neg) Ur Methadone, Qual Neg (Neg) Acetaminophen (10-30) ug/ml Urine Barbiturates Neg (Neg) Ur Phencyclidine (PCP) Neg (Neg) U Amphetamin/Meth Scrn Neg (Neg) MDMA (Ecstasy) Screen Neg (Neg) U Benzodiazepines Scrn Neg (Neg) Ur Cocaine Metabolite Neg (Neg) U Marijuana (THC) Screen Neg (Neg) Ethyl Alcohol mg/dL (0-3) mg/dl COVID-19 Eval Order SARS-CoV-2, RNA, NAAT (NEGATIVE) 11/04/20 11/04/20 11/04/20 Range/Units 23:38 23:38 23:38 WBC (4.8-10.8) K/uL RBC (4.2-5.4) M/uL Hgb (12.0-16.0) g/dL Hct (37-47) % MCV (80-100) fL MCH (25-34) pg MCHC (32-36) g/dL RDW Std Deviation (36.4-46.3) fL RDW Coeff of Pattie (11.5-14.5) % Plt Count (130-400) K/uL MPV (7.4-10.4) fL Immature Gran % (Auto) % Neut % (Auto) % Lymph % (Auto) % Sierra % (Auto) % Eos % (Auto) % Baso % (Auto) % Neut # (Auto) (1.4-6.5) K/uL Lymph # (Auto) (1.2-3.4) K/uL Sierra # (Auto) (0.11-0.59) K/uL Eos # (Auto) (0-0.5) K/uL Baso # (Auto) (0-0.2) K/uL Immature Gran # (Auto) (0.00-0.02) K/uL Sodium 144 (136-145) mmol/L Potassium 3.1 L (3.5-5.1) mmol/L Chloride 109 H (98-107) mmol/L Carbon Dioxide 24 (21-32) mmol/L Anion Gap 11.0 (3-11) BUN 12 (7-18) mg/dl Creatinine 0.92 (0.6-1.2) mg/dl Est Cr Clr Drug Dosing 72.3 ml/min Est GFR ( Amer) 83.0 ml/min Est GFR (Non-Af Amer) 71.6 ml/min BUN/Creatinine Ratio 13.3 (10-20) Glucose 157 H (70-99) mg/dl Calcium 8.5 (8.5-10.1) mg/dl Total Bilirubin 0.2 (0.2-1) mg/dl AST 20 (15-37) U/L ALT 24 (12-78) U/L Alkaline Phosphatase 99 (45-117) U/L Total Protein 7.4 (6.4-8.2) gm/dl Albumin 4.1 (3.4-5.0) gm/dl Globulin 3.3 (2.5-4.0) gm/dl Albumin/Globulin Ratio 1.2 (0.9-2) TSH 0.979 (0.300-4.500) uIu/ml Urine Color Urine Appearance (Clear) Urine pH (4.5-7.5) Ur Specific K[place]y (1.000-1.030) Urine Protein (Negative) Urine Glucose (UA) (Negative) Urine Ketones (Negative) Urine Blood (Negative) Urine Nitrite (Negative) Urine Bilirubin (Negative) Urine Urobilinogen (Negative) Ur Leukocyte Esterase (Negative) Urine WBC (Auto) (0-5) /hpf Urine RBC (Auto) (0-4) /hpf U Hyaline Cast (Auto) (0-5) /lpf U Epithel Cells (Auto) (0-5) /lpf Urine Bacteria (Auto) (Negative) Calcium Oxalate Crystal (None Prsent) Urine Test (Negative) Salicylates 4.7 (2.8-20) mg/dl Urine Opiates Screen (Neg) Ur Methadone, Qual (Neg) Acetaminophen 2 L (10-30) ug/ml Urine Barbiturates (Neg) Ur Phencyclidine (PCP) (Neg) U Amphetamin/Meth Scrn (Neg) MDMA (Ecstasy) Screen (Neg) U Benzodiazepines Scrn (Neg) Ur Cocaine Metabolite (Neg) U Marijuana (THC) Screen (Neg) Ethyl Alcohol mg/dL 11.5 H (0-3) mg/dl COVID-19 Eval Order SARS-CoV-2, RNA, NAAT (NEGATIVE) 11/05/20 11/05/20 11/05/20 Range/Units 00:00 01:43 01:43 WBC (4.8-10.8) K/uL RBC (4.2-5.4) M/uL Hgb (12.0-16.0) g/dL Hct (37-47) % MCV (80-100) fL MCH (25-34) pg MCHC (32-36) g/dL RDW Std Deviation (36.4-46.3) fL RDW Coeff of Pattie (11.5-14.5) % Plt Count (130-400) K/uL MPV (7.4-10.4) fL Immature Gran % (Auto) % Neut % (Auto) % Lymph % (Auto) % Sierra % (Auto) % Eos % (Auto) % Baso % (Auto) % Neut # (Auto) (1.4-6.5) K/uL Lymph # (Auto) (1.2-3.4) K/uL Sierra # (Auto) (0.11-0.59) K/uL Eos # (Auto) (0-0.5) K/uL Baso # (Auto) (0-0.2) K/uL Immature Gran # (Auto) (0.00-0.02) K/uL Sodium (136-145) mmol/L Potassium (3.5-5.1) mmol/L Chloride (98-107) mmol/L Carbon Dioxide (21-32) mmol/L Anion Gap (3-11) BUN (7-18) mg/dl Creatinine (0.6-1.2) mg/dl Est Cr Clr Drug Dosing ml/min Est GFR ( Amer) ml/min Est GFR (Non-Af Amer) ml/min BUN/Creatinine Ratio (10-20) Glucose (70-99) mg/dl Calcium (8.5-10.1) mg/dl Total Bilirubin (0.2-1) mg/dl AST (15-37) U/L ALT (12-78) U/L Alkaline Phosphatase (45-117) U/L Total Protein (6.4-8.2) gm/dl Albumin (3.4-5.0) gm/dl Globulin (2.5-4.0) gm/dl Albumin/Globulin Ratio (0.9-2) TSH (0.300-4.500) uIu/ml Urine Color Urine Appearance (Clear) Urine pH (4.5-7.5) Ur Specific K[place] (1.000-1.030) Urine Protein (Negative) Urine Glucose (UA) (Negative) Urine Ketones (Negative) Urine Blood (Negative) Urine Nitrite (Negative) Urine Bilirubin (Negative) Urine Urobilinogen (Negative) Ur Leukocyte Esterase (Negative) Urine WBC (Auto) (0-5) /hpf Urine RBC (Auto) (0-4) /hpf U Hyaline Cast (Auto) (0-5) /lpf U Epithel Cells (Auto) (0-5) /lpf Urine Bacteria (Auto) (Negative) Calcium Oxalate Crystal (None Prsent) Urine Test Negative (Negative) Salicylates (2.8-20) mg/dl Urine Opiates Screen (Neg) Ur Methadone, Qual (Neg) Acetaminophen (10-30) ug/ml Urine Barbiturates (Neg) Ur Phencyclidine (PCP) (Neg) U Amphetamin/Meth Scrn (Neg) MDMA (Ecstasy) Screen (Neg) U Benzodiazepines Scrn (Neg) Ur Cocaine Metabolite (Neg) U Marijuana (THC) Screen (Neg) Ethyl Alcohol mg/dL (0-3) mg/dl COVID-19 Eval [email or web address]-2, RNA, NAAT NEGATIVE (NEGATIVE) Administered Medications Buprenorphine/Naloxone (Buprenorphine/Naloxone 8/2 Mg Tab) 1 tab SL BID PARESH Stop: 12/05/20 08:59 Last Admin: 11/05/20 08:59 Dose: 1 tab Documented by: [id number] Hydroxyzine HCl (Hydroxyzine Hcl 25 Mg Tab) 25 mg PO Q4H PRN PRN Reason: Anxiety Stop: 12/05/20 05:24 Last Admin: 11/05/20 11:26 Dose: 25 mg Documented by: [id number] Nicotine (Nicotine 14 Mg/24 Hr Patch) 14 mg TD QAM PARESH Stop: 12/05/20 11:29 Last Admin: 11/05/20 11:38 Dose: 14 mg Documented by: [id number] Discontinued Medications Lidocaine HCl (Xylocaine 1%/Sod Bicarb 20 Ml Vial) 20 ml INFIL NOW ONE Stop: 11/05/20 00:37 Last Admin: 11/05/20 01:08 Dose: 20 ml Documented by: [id number] Potassium Chloride (Potassium Chloride Crtab 20 Meq Tabcr) 40 meq PO NOW STA Stop: 11/05/20 00:37 Last Admin: 11/05/20 01:08 Dose: 40 meq Documented by: [id number] Topiramate (Topiramate 50 Mg Tab) 50 mg PO BID PARESH Stop: 12/05/20 08:59 Last Admin: 11/05/20 09:00 Dose: 50 mg Documented by: [id number] Topiramate (Topiramate 50 Mg Tab) 50 mg PO ONE ONE Stop: 11/05/20 11:31 Last Admin: 11/05/20 11:38 Dose: 50 mg Documented by: [id number] Discharge Plan Visit Data Chief Complaint: Mental Health Evaluation Stated Complaint: BILAT WRIST LAC. SUICIDAL IDEATION ED Provider: Jessica Wiley Discharge Problem: Suicide attempt by cutting of wrist Patient Disposition: Admitted As Inpatient Discharge Instructions Interventions: ED Discharge Assessment Last Done: 11/05/20 05:33
[2020-11-05] MEDS: BUPRENORPHINE/NALOXONE 8/2 MG TAB SL SCH ×2 (08:59→20:25)
[2020-11-05] MEDS ORDERED: TOPIRAMATE 50 MG TAB PO SCH (09:00)
[2020-11-05] MEDS ORDERED: NICOTINE POLACRILEX 2 MG GUM MT PRN (10:54)
[2020-11-05] MEDS ORDERED: LORazepam 1 MG TAB PO PRN ×2 (10:55→14:33)
[2020-11-05] MEDS ORDERED: TOPIRAMATE 50 MG TAB PO ONE (11:30)
[2020-11-05] MEDS: NICOTINE 14 MG/24 HR PATCH TD SCH (11:38)
[2020-11-05] MEDS ORDERED: HALOPERIDOL LACTATE 5 MG/ML 1 ML VIAL IM PRN (14:29)
[2020-11-05] MEDS ORDERED: LORazepam 2 MG/ML VIAL (IM USE) IM PRN (14:30)
[2020-11-05] MEDS ORDERED: BENZTROPINE MESYLATE 1 MG/ML 2 ML AMP IM PRN (14:30)
[2020-11-05] MEDS ORDERED: haloperidoL 5 MG TAB PO PRN (14:31)
--- NOTE | 2020-11-05 14:40 | History & Physical ---
Date of Service November 05, 2020 Impression / Recommendations Impression 50 yo female with a history of bipolar disorder and opiate dependence admit following suicidal gesture, presumably intoxicated but also disorganized, appears to have poor self care and some paranoia. (1) Bipolar 1 disorder, mixed: (2) Opiate dependence: 11/05/20: The patient was admitted to the [facility] on q15 min checks (behavioral with suicide precautions) for safety. The patient will participate in group, recreational, and milieu therapies and will be offered additional individual and family sessions as clinically appropriate. Continue home doses of medication and confirm with outpatient providers. Appears to have some degree of oral dyskinesia (tongue thrust) that would suggest past exposure to antipsychotics. Haldol and Ativan PO/IM for acute agitation and presumed mixed brenda. Patient is currently refusing Ativan. I had ordered Awss protocol as unclear how much recent ETOH use but repeat vitals are agitating to patient so will d/c. MNPR for unpredictable and agitated behavior. Inventory Assets Strengths: reported compliance with outpatient services Needs: collateral re: recent functioning, monitoring for safety planning. Risk Factors Assessment : Yes Do You Have Access To A Gun?: No Mental Health Diagnoses: Yes Substance Use Disorders: Yes Previous Psychiatric Hospitalization: Yes Protective Factors Assessment Good Rapport with Provider: Yes Psychiatric History Identifying Data RENE DANIELS is a 50-year-old F who currently lives in [place], has a history of bipolar disorder and substance abuse, and was admitted on 11/05/20 05:26 on a 302 involuntary commitment for self harm and disorganized behavior. Chief Complaint "I just want out of here, I wouldn't have come out of the [facility] if I didn't want to live". History of Present Illness Patient was brought to ED on a warrant after being found wandering along the road heading out the [facility]. The patient reports drinking "a bottle" of [employer] because "it was a bad day". She states overall she has been "fine", met with her case maker last week, and is taking meds as prescribed. She states that a friend dropped her off (doesn't have a car or her license) and she states "he shouldn't have left me like that". ED notes implies she had an argument with her neighbors, she doesn't endorse that at this time, just focussed on "how embarrassed I am and I just want to go home". She is disheveled yet focussed on her appearance. She carried a knife into the [employer] with no specific plan but made superficial scratches to right wrist and deeper 6 cm cut for left wrist/forearm requiring 4 sutures. She also has what appear to be scratches made by her fingernails on neck and decolletage. She denies regular use of ETOH. She states she has mood swings but doesn't know why she is otherwise diagnosed with bipolar disorder as denies brenda. She lacks insight into her irritability but is understandably angry about involuntary status. She reports being "302'd" before by a boyfriend for SI and adds "we were fighting and both doing bathsalts at that time." She is focussed on her cat and will ask her friend to check on the cat. Patient became more irritable with social work assessment after I left the room. Has been intermittently yelling out on the unit re: need for discharge. Just engaged in verbal deescalation with staff and security were called to unit. She calmed in their presence and is currently refusing prns. She made statements like "I better not be being recorded in there" in reference to her room. She is restless at times about the unit. She is disorganized in that she insists she is on a voluntary commitment and can sign out. The patient had been offered an voluntary commitment in the ED but clearly did not intend to engage in meaningful treatment and yelled at the liaison. ED did not feel she could cooperate with collateral and voluntarily wait for offices to open/confirm aftercare. Past Psychiatric History Current Psychiatric Diagnosis: Bipolar Disorder Outpatient Services: [facility] for psych meds, case management with [facility] therapist just switched 2 sessions ago to [facility]. Previous Psych Admissions: 2010 for SI Do You Have Access To A Gun?: No History of Previous Suicide Attempt: No (denies) Past Medication Trials: chart lists lamictal, otherwise she is unable to provide Allergies Allergy/AdvReac Type Severity Reaction Status Date / Time No Known Allergies Allergy Verified 04/03/17 13:56 Home Medications Medication Instructions Recorded Confirmed Type buprenorphine 8 mg-naloxone 2 mg 1 tab SUBLINGUAL BID 04/02/18 11/04/20 History sublingual film topiramate 50 mg tablet (Topamax) 100 mg PO DAILY 11/04/20 11/05/20 History Family History Family History of: None Alcohol History Hx of Alcohol Use Over the Past 12 Months: Yes (Patient reports she does not drink alcohol, consumption on 11/04 is iso) Smoking Use Have You Smoked or Used Tobacco Products in the Last 30 Days: Yes tobacco type: cigarettes Smoking Status: Current every day smoker Smoking packs per day: 1 Substance History Hx of Prescription Med Misuse Over the Past 12 Months: No Hx of Over the Counter Med Misuse Over the Past 12 Months: No Hx of Inhalent Misuse Over the Past 12 Months: No Hx of Organic Substance Use Over the Past 12 Months: No Hx of Illegal Substances/Street Drug Use Over Past 12 Months: No Problems as a Result of Past Substance Use: None Identified Problems as a Result of Past Substance Use Comments: Reports history of opioid abuse but refuses to provide further details Personal History Living Arrangements: Apartment Highest Grade Completed Comment: refused Employment Status: Unemployed Number Of Children: 1 (14 yo son lives with his father) Beliefs That Will Affect Care: None Current Legal Problems: No Legal Problems Comment: hx of probation for a shoplifting charge 5 years ago Hx Traumatic Life Events: No Patient History Medical History (Updated 11/05/20 @ 15:02 by Kia Johnson MD) IV drug user No pertinent past medical history Opiate dependence Social History Smoking Status: Current every day smoker Tobacco Type: Cigarettes Preferred Language: Bengali Beliefs That Will Affect Care: None Feels Safe at Home: Yes Assistive Devices: Contacts Review of Systems Review of Systems: All systems reviewed & are unremarkable except as noted in HPI & below Physical Exam Psychiatric: Orientation: alert, oriented to person and oriented to place Apperance: + disheveled Eye Contact: + fair eye contact Motor Behavior: no abnormal motor movements Speech: + loud speech labile Mood: + irritable mood and + angry mood Thought Process: + circumstantial thought process Thought Content: + paranoid Suicidal Thoughts: denies suicidal thoughts Homicidal Thoughts: denies homicidal thoughts Hallucinations: no auditory hallucinations and no visual hallucinations Cognition: language grossly intact; + attention not intact Estimated Intelligence: consistent with education level Insight: + poor insight Judgement: + poor judgement Vital Signs (Past 24 Hours): Last Vital Signs Temp 36.4 C L 11/05/20 11:47 Pulse 73 11/05/20 11:47 Resp 18 11/05/20 11:47 BP 142/82 H 11/05/20 11:47 Pulse Ox 98 11/05/20 01:00 Results & Data ([facility]) Laboratory Results Laboratory Results - last 24 hr 11/04/20 11/04/20 11/04/20 22:58 22:58 23:38 WBC 12.73 H RBC 4.48 Hgb 13.6 Hct 39.6 MCV 88.4 MCH 30.4 MCHC 34.3 RDW Std Deviation 46.9 H RDW Coeff of Pattie 14.5 Plt Count 193 MPV 13.4 H Immature Gran % (Auto) 0.2 Neut % (Auto) 67.9 Lymph % (Auto) 23.3 Bowman % (Auto) 7.9 Eos % (Auto) 0.4 Baso % (Auto) 0.3 Neut # (Auto) 8.65 H Lymph # (Auto) 2.97 Bowman # (Auto) 1.00 H Eos # (Auto) 0.05 Baso # (Auto) 0.04 Immature Gran # (Auto) 0.02 Sodium Potassium Chloride Carbon Dioxide Anion Gap BUN Creatinine Est Cr Clr Drug Dosing Est GFR ( Amer) Est GFR (Non-Af Amer) BUN/Creatinine Ratio Glucose Calcium Total Bilirubin AST ALT Alkaline Phosphatase Total Protein Albumin Globulin Albumin/Globulin Ratio TSH Urine Color Dark Yellow Urine Appearance Cloudy A Urine pH 5.5 Ur Specific [place] 1.038 H Urine Protein 1+ H Urine Glucose (UA) Negative Urine Ketones Trace H Urine Blood Trace H Urine Nitrite Negative Urine Bilirubin 1+ H Urine Urobilinogen Negative Ur Leukocyte Esterase Negative Urine WBC (Auto) 5-10 H Urine RBC (Auto) 10-30 H U Hyaline Cast (Auto) 1-5 U Epithel Cells (Auto) >30 H Urine Bacteria (Auto) 1+ H Calcium Oxalate Crystal Present A Urine Test Salicylates Urine Opiates Screen Neg Ur Methadone, Qual Neg Acetaminophen Urine Barbiturates Neg Ur Phencyclidine (PCP) Neg U Amphetamin/Meth Scrn Neg MDMA (Ecstasy) Screen Neg U Benzodiazepines Scrn Neg Ur Cocaine Metabolite Neg U Marijuana (THC) Screen Neg Ethyl Alcohol mg/dL COVID-19 Eval Order SARS-CoV-2, RNA, NAAT 11/04/20 11/04/20 11/04/20 23:38 23:38 23:38 WBC RBC Hgb Hct MCV MCH MCHC RDW Std Deviation RDW Coeff of Pattie Plt Count MPV Immature Gran % (Auto) Neut % (Auto) Lymph % (Auto) Bowman % (Auto) Eos % (Auto) Baso % (Auto) Neut # (Auto) Lymph # (Auto) Bowman # (Auto) Eos # (Auto) Baso # (Auto) Immature Gran # (Auto) Sodium 144 Potassium 3.1 L Chloride 109 H Carbon Dioxide 24 Anion Gap 11.0 BUN 12 Creatinine 0.92 Est Cr Clr Drug Dosing 72.3 Est GFR ( Amer) 83.0 Est GFR (Non-Af Amer) 71.6 BUN/Creatinine Ratio 13.3 Glucose 157 H Calcium 8.5 Total Bilirubin 0.2 AST 20 ALT 24 Alkaline Phosphatase 99 Total Protein 7.4 Albumin 4.1 Globulin 3.3 Albumin/Globulin Ratio 1.2 TSH 0.979 Urine Color Urine Appearance Urine pH Ur Specific [place] Urine Protein Urine Glucose (UA) Urine Ketones Urine Blood Urine Nitrite Urine Bilirubin Urine Urobilinogen Ur Leukocyte Esterase Urine WBC (Auto) Urine RBC (Auto) U Hyaline Cast (Auto) U Epithel Cells (Auto) Urine Bacteria (Auto) Calcium Oxalate Crystal Urine Test Salicylates 4.7 Urine Opiates Screen Ur Methadone, Qual Acetaminophen 2 L Urine Barbiturates Ur Phencyclidine (PCP) U Amphetamin/Meth Scrn MDMA (Ecstasy) Screen U Benzodiazepines Scrn Ur Cocaine Metabolite U Marijuana (THC) Screen Ethyl Alcohol mg/dL 11.5 H COVID-19 Eval Order SARS-CoV-2, RNA, NAAT 11/05/20 11/05/20 11/05/20 00:00 01:43 01:43 WBC RBC Hgb Hct MCV MCH MCHC RDW Std Deviation RDW Coeff of Pattie Plt Count MPV Immature Gran % (Auto) Neut % (Auto) Lymph % (Auto) Bowman % (Auto) Eos % (Auto) Baso % (Auto) Neut # (Auto) Lymph # (Auto) Bowman # (Auto) Eos # (Auto) Baso # (Auto) Immature Gran # (Auto) Sodium Potassium Chloride Carbon Dioxide Anion Gap BUN Creatinine Est Cr Clr Drug Dosing Est GFR ( Amer) Est GFR (Non-Af Amer) BUN/Creatinine Ratio Glucose Calcium Total Bilirubin AST ALT Alkaline Phosphatase Total Protein Albumin Globulin Albumin/Globulin Ratio TSH Urine Color Urine Appearance Urine pH Ur Specific [place] Urine Protein Urine Glucose (UA) Urine Ketones Urine Blood Urine Nitrite Urine Bilirubin Urine Urobilinogen Ur Leukocyte Esterase Urine WBC (Auto) Urine RBC (Auto) U Hyaline Cast (Auto) U Epithel Cells (Auto) Urine Bacteria (Auto) Calcium Oxalate Crystal Urine Test Negative Salicylates Urine Opiates Screen Ur Methadone, Qual Acetaminophen Urine Barbiturates Ur Phencyclidine (PCP) U Amphetamin/Meth Scrn MDMA (Ecstasy) Screen U Benzodiazepines Scrn Ur Cocaine Metabolite U Marijuana (THC) Screen Ethyl Alcohol mg/dL COVID-19 Eval [facility] SARS-CoV-2, RNA, NAAT NEGATIVE Current Inpatient Medications Current Inpatient Medications: Current Inpatient Medications Acetaminophen (Acetaminophen 325 Mg Tab) 650 mg PO Q4H PRN PRN Reason: Headache or Minor Fever Stop: 12/05/20 05:24 Al Hydrox/Mg Hydrox/Simethicone (Aluminum/Magnesium Susp 30 Ml Udc) 30 ml PO Q4H PRN PRN Reason: GI Upset Stop: 12/05/20 05:24 Benztropine Mesylate (Benztropine Mesylate 1 Mg/Ml 2 Ml Amp) 1 mg IM Q4 PRN PRN Reason: muscle spasm Stop: 12/05/20 14:29 Bismuth Subsalicylate (Bismuth Subsalicylate Liqd 236 Ml) 15 ml PO PRN PRN PRN Reason: Loose Stool Stop: 12/05/20 05:24 Buprenorphine/Naloxone (Buprenorphine/Naloxone 8/2 Mg Tab) 1 tab SL BID PARESH Stop: 12/05/20 08:59 Last Admin: 11/05/20 08:59 Dose: 1 tab Documented by: Haloperidol (Haloperidol 5 Mg Tab) 5 mg PO Q4 PRN PRN Reason: Anxiety/Agitation Stop: 12/05/20 14:30 Haloperidol Lactate (Haloperidol Lactate 5 Mg/Ml 1 Ml Vial) 10 mg IM Q4 PRN PRN Reason: Anxiety/Agitation Stop: 12/05/20 14:28 Hydroxyzine HCl (Hydroxyzine Hcl 25 Mg Tab) 50 mg PO HSZ PRN PRN Reason: Insomnia Stop: 12/05/20 05:24 Hydroxyzine HCl (Hydroxyzine Hcl 25 Mg Tab) 25 mg PO Q4H PRN PRN Reason: Anxiety Stop: 12/05/20 05:24 Last Admin: 11/05/20 11:26 Dose: 25 mg Documented by: Lorazepam (Lorazepam 1 Mg Tab) 1 mg PO ONE PRN; Protocol PRN Reason: EtoH Withdrawal AWSS 6-10 Lorazepam (Lorazepam 2 Mg/Ml Vial (Im Use)) 2 mg IM Q4 PRN PRN Reason: Anxiety/Agitation Stop: 12/05/20 14:29 Lorazepam (Lorazepam 1 Mg Tab) 1 mg PO Q4 PRN PRN Reason: Anxiety/Agitation Stop: 12/05/20 14:32 Magnesium Hydroxide (Magnesium Hydroxide Susp 30 Ml Udc) 30 ml PO DAILY PRN PRN Reason: Constipation Stop: 12/05/20 05:24 Miscellaneous (Remove Nicoderm Patch) 1 ea N/A DAILY@[id number] [facility] Stop: 12/06/20 08:58 Nicotine (Nicotine 14 Mg/24 Hr Patch) 14 mg TD QAM [facility] Stop: 12/05/20 11:29 Last Admin: 11/05/20 11:38 Dose: 14 mg Documented by: Nicotine Polacrilex (Nicotine Polacrilex 2 Mg Gum) 1 piece MT PRN PRN PRN Reason: nicotine withdrawal Stop: 12/05/20 10:53 Sodium Chloride (Sodium Chloride 0.65% Na Soln 45 Ml ([place])) 1 - 2 sprays NA PRN PRN PRN Reason: Nasal Dryness/Congestion Stop: 12/05/20 05:24 Topiramate (Topiramate 100 Mg Tab) 100 mg PO QAM [facility] Stop: 12/06/20 08:59
[2020-11-06] MEDS: BUPRENORPHINE/NALOXONE 8/2 MG TAB SL SCH (08:41)
[2020-11-06] MEDS: NICOTINE 14 MG/24 HR PATCH TD SCH (08:53)
[2020-11-06] MEDS ORDERED: TOPIRAMATE 100 MG TAB PO SCH (09:00)
--- NOTE | 2020-11-06 10:42 | Discharge Summary ---
Date of Service November 06, 2020 History of Present Illness Patient was brought to ED on a warrant after being found wandering along the road heading out the benitez. The patient reports drinking "a bottle" of [employer] because "it was a bad day". She states overall she has been "fine", met with her continuous pillowcase cutter last week, and is taking meds as prescribed. She states that a friend dropped her off (doesn't have a car or her license) and she states "he shouldn't have left me like that". ED notes implies she had an argument with her neighbors, she doesn't endorse that at this time, just focussed on "how embarrassed I am and I just want to go home". She is disheveled yet focussed on her appearance. She carried a knife into the benitez with no specific plan but made superficial scratches to right wrist and deeper 6 cm cut for left wrist/forearm requiring 4 sutures. She also has what appear to be scratches made by her fingernails on neck and decolletage. She denies regular use of ETOH. She states she has mood swings but doesn't know why she is otherwise diagnosed with bipolar disorder as denies brenda. She lacks insight into her irritability but is understandably angry about involuntary status. She reports being "302'd" before by a boyfriend for SI and adds "we were fighting and both doing bathsalts at that time." She is focussed on her cat and will ask her friend to check on the cat. Patient became more irritable with social work assessment after I left the room. Has been intermittently yelling out on the unit re: need for discharge. Just engaged in verbal deescalation with staff and security were called to unit. She calmed in their presence and is currently refusing prns. She made statements like "I better not be being recorded in there" in reference to her room. She is restless at times about the unit. She is disorganized in that she insists she is on a voluntary commitment and can sign out. The patient had been offered an voluntary commitment in the ED but clearly did not intend to engage in meaningful treatment and yelled at the liaison. ED did not feel she could co operate with collateral and voluntarily wait for offices to open/confirm aftercare. Physical Exam Psychiatric See admission H&P and DOD summary. Vital Signs (Past 24 Hours) Last Vital Signs Temp 36.6 C 11/06/20 06:43 Pulse 90 11/06/20 06:44 Resp 18 11/06/20 06:43 BP 143/82 H 11/06/20 06:44 Pulse Ox 98 11/05/20 01:00 Principal Diagnosis bipolar II disorder Psychiatric Data See daily stay summary. In short, safety was maintained and the patient was largely uncooperative with care other than meals and medications. She did have a period of yelling pm of 11/05 which was directly related to having to remain hospitalized but she calmed readily with security presence and did not require IM medication. She remained irritable but overall maintained her behavior overnight. Records were reviewed from [facility] that confirms baseline irritable personality and a diagnosis of bipolar II rather than bipolar I. She allowed contact with a close friend who will also be providing a ride for her. They spoke on several occasions during her stay and he believes her to be at baseline and confirmed no weapons in the home or ongoing safety concerns for patient. Risks that can be mitigated inpatient have been mitigated and she no longer meets criteria for involuntary commitment. Further inpatient stay is deemed counter therapeutic as she will not engage in therapies. There were no medication changes during her stay. A safety plan was completed prior to discharge. She was advised not to drink alcohol and angrily denies any regular alcohol ingestion. Day of Discharge Assessment Today the patient voices readiness for discharge. They note ongonig anger about commitment but have consistently denied thoughts to harm self or others. Thoughts remain concrete but their ability to redirect upset is improved from admission. There is no evidence of psychosis. They agree to take medications as prescribed and keep follow-up appointments. They are stable for discharge to outpatient level of care. Transition of Care Transition Of Care Record: was reviewed with the patient Advance Directives Advance Directives Information Provided: Yes Advance Directives: No Mental Health Advance Directive: No Advance Directives on File: No Living Will: No Power of Circus Supervisor: No Advance Directives Reason:: Declines as Mental Health Visit. Risk Factors Assessment : Yes Do You Have Access To A Gun?: No Mental Health Diagnoses: Yes Substance Use Disorders: Yes Previous Psychiatric Hospitalization: Yes Protective Factors Assessment Good Rapport with Provider: Yes Tobacco Cessation at Discharge Tobacco Cessation Medication Prescribed at Discharge: Offered & Pt Refused Total Time Total Time Spent: Greater Than 30 Minutes Total Time Includes: Examination of the patient, Discharge Planning and Medication Reconciliation Discharge Data Lab Results 11/04/20 11/04/20 11/04/20 22:58 22:58 23:38 WBC 12.73 H RBC 4.48 Hgb 13.6 Hct 39.6 MCV 88.4 MCH 30.4 MCHC 34.3 RDW Std Deviation 46.9 H RDW Coeff of Pattie 14.5 Plt Count 193 MPV 13.4 H Immature Gran % (Auto) 0.2 Neut % (Auto) 67.9 Lymph % (Auto) 23.3 [place] % (Auto) 7.9 Eos % (Auto) 0.4 Baso % (Auto) 0.3 Neut # (Auto) 8.65 H Lymph # (Auto) 2.97 [place] # (Auto) 1.00 H Eos # (Auto) 0.05 Baso # (Auto) 0.04 Immature Gran # (Auto) 0.02 Sodium Potassium Chloride Carbon Dioxide Anion Gap BUN Creatinine Est Cr Clr Drug Dosing Est GFR ( Amer) Est GFR (Non-Af Amer) BUN/Creatinine Ratio Glucose Calcium Total Bilirubin AST ALT Alkaline Phosphatase Total Protein Albumin Globulin Albumin/Globulin Ratio TSH Urine Color Dark Yellow Urine Appearance Cloudy A Urine pH 5.5 Ur Specific Carman 1.038 H Urine Protein 1+ H Urine Glucose (UA) Negative Urine Ketones Trace H Urine Blood Trace H Urine Nitrite Negative Urine Bilirubin 1+ H Urine Urobilinogen Negative Ur Leukocyte Esterase Negative Urine WBC (Auto) 5-10 H Urine RBC (Auto) 10-30 H U Hyaline Cast (Auto) 1-5 U Epithel Cells (Auto) >30 H Urine Bacteria (Auto) 1+ H Calcium Oxalate Crystal Present A Urine Test Salicylates Urine Opiates Screen Neg Ur Methadone, Qual Neg Acetaminophen Urine Barbiturates Neg Ur Phencyclidine (PCP) Neg U Amphetamin/Meth Scrn Neg MDMA (Ecstasy) Screen Neg U Benzodiazepines Scrn Neg Ur Cocaine Metabolite Neg U Marijuana (THC) Screen Neg Ethyl Alcohol mg/dL COVID-19 Eval Order SARS-CoV-2, RNA, NAAT 11/04/20 11/04/20 11/04/20 23:38 23:38 23:38 WBC RBC Hgb Hct MCV MCH MCHC RDW Std Deviation RDW Coeff of Pattie Plt Count MPV Immature Gran % (Auto) Neut % (Auto) Lymph % (Auto) [place] % (Auto) Eos % (Auto) Baso % (Auto) Neut # (Auto) Lymph # (Auto) [place] # (Auto) Eos # (Auto) Baso # (Auto) Immature Gran # (Auto) Sodium 144 Potassium 3.1 L Chloride 109 H Carbon Dioxide 24 Anion Gap 11.0 BUN 12 Creatinine 0.92 Est Cr Clr Drug Dosing 72.3 Est GFR ( Amer) 83.0 Est GFR (Non-Af Amer) 71.6 BUN/Creatinine Ratio 13.3 Glucose 157 H Calcium 8.5 Total Bilirubin 0.2 AST 20 ALT 24 Alkaline Phosphatase 99 Total Protein 7.4 Albumin 4.1 Globulin 3.3 Albumin/Globulin Ratio 1.2 TSH 0.979 Urine Color Urine Appearance Urine pH Ur Specific Carman Urine Protein Urine Glucose (UA) Urine Ketones Urine Blood Urine Nitrite Urine Bilirubin Urine Urobilinogen Ur Leukocyte Esterase Urine WBC (Auto) Urine RBC (Auto) U Hyaline Cast (Auto) U Epithel Cells (Auto) Urine Bacteria (Auto) Calcium Oxalate Crystal Urine Test Salicylates 4.7 Urine Opiates Screen Ur Methadone, Qual Acetaminophen 2 L Urine Barbiturates Ur Phencyclidine (PCP) U Amphetamin/Meth Scrn MDMA (Ecstasy) Screen U Benzodiazepines Scrn Ur Cocaine Metabolite U Marijuana (THC) Screen Ethyl Alcohol mg/dL 11.5 H COVID-19 Eval Order SARS-CoV-2, RNA, NAAT 11/05/20 11/05/20 11/05/20 00:00 01:43 01:43 WBC RBC Hgb Hct MCV MCH MCHC RDW Std Deviation RDW Coeff of Pattie Plt Count MPV Immature Gran % (Auto) Neut % (Auto) Lymph % (Auto) [place] % (Auto) Eos % (Auto) Baso % (Auto) Neut # (Auto) Lymph # (Auto) [place] # (Auto) Eos # (Auto) Baso # (Auto) Immature Gran # (Auto) Sodium Potassium Chloride Carbon Dioxide Anion Gap BUN Creatinine Est Cr Clr Drug Dosing Est GFR ( Amer) Est GFR (Non-Af Amer) BUN/Creatinine Ratio Glucose Calcium Total Bilirubin AST ALT Alkaline Phosphatase Total Protein Albumin Globulin Albumin/Globulin Ratio TSH Urine Color Urine Appearance Urine pH Ur Specific Carman Urine Protein Urine Glucose (UA) Urine Ketones Urine Blood Urine Nitrite Urine Bilirubin Urine Urobilinogen Ur Leukocyte Esterase Urine WBC (Auto) Urine RBC (Auto) U Hyaline Cast (Auto) U Epithel Cells (Auto) Urine Bacteria (Auto) Calcium Oxalate Crystal Urine Test Negative Salicylates Urine Opiates Screen Ur Methadone, Qual Acetaminophen Urine Barbiturates Ur Phencyclidine (PCP) U Amphetamin/Meth Scrn MDMA (Ecstasy) Screen U Benzodiazepines Scrn Ur Cocaine Metabolite U Marijuana (THC) Screen Ethyl Alcohol mg/dL COVID-19 Eval Order Covid19 [facility] SARS-CoV-2, RNA, NAAT NEGATIVE Hospital Course (1) Opiate dependence: (2) Bipolar II disorder with or without full interepisode recovery: 11/05/20: The patient was admitted to the [facility] ([facility]) on q15 min checks (behavioral with suicide precautions) for safety. The patient will participate in group, recreational, and milieu therapies and will be offered additional individual and family sessions as clinically appropriate. Continue home doses of medication and confirm with outpatient providers. Appears to have some degree of oral dyskinesia (tongue thrust) that would suggest past exposure to antipsychotics. Haldol and Ativan PO/IM for acute agitation and presumed mixed brenda. Patient is currently refusing Ativan. I had ordered Awss protocol as unclear how much recent ETOH use but repeat vitals are agitating to patient so will d/c. MNPR for unpredictable and agitated behavior. Mental Health & Subst Abuse Tx Psychiatrist Name of Psychiatrist: Codi Ferrer Psychiatrist's Date of Appointment with Psychiatrist: 11/29/20 Time of Appointment with Psychiatrist: 1 p.m Psychiatric Appointment Comment: [address], [place] [address] Psychiatrist Release of Information: Obtained, Reviewed and Signed Therapist Name of Therapist: [facility] Date of Therapist Appointment: 11/12/20 Time of Therapist Appointment: 2 p.m Therapy Appointment Comment: [address], [place] [address] Therapist Release of Information: Obtained, Reviewed and Signed Lift Slab Operator Name of Lift Slab Operator: JOVANI Petit Phone Number for Lift Slab Operator: Date of Appointment with Lift Slab Operator: 11/07/20 Time of Appointment with Lift Slab Operator: 4 pm Case Management Appointment Comment: [address] [place] [address] Lift Slab Operator Release of Information: Obtained, Reviewed and Signed Post Discharge Appointments Primary Care Physician Name Of Family Doctor: Jaime Villarreal Primary Care Provider Appointment Comment: [address] [place] [address] Primary Care Release of Information: Obtained, Reviewed and Signed Smoking Cessation Counseling Tobacco Cessation Medication Prescribed at Discharge: Offered & Pt Refused Contact Information Discharge Discharge Address: [place] [address] Discharge Plan Discharge Items Patient Disposition: Home - Self-Care Reason For Visit: BIPOLAR DISORDER Discharge Diagnosis: bipolar II disorder Activity: Resume your previous activity Non-emergency contact: Psychiatrist, Therapist and Counter Professional Call non-emergency contact if: you have any medication questions and your symptoms worsen Follow-up/Referrals: Jaime Villarreal MD [Primary Care Provider] - Diet: Regular Addtl Attending Provider Instructions: SPECIAL CARE INSTRUCTIONS: 1. Follow through with your scheduled aftercare appointments. If unable to keep an appointment, please call to reschedule. 2. Take your medication only as prescribed. Medication should not be changed or stopped without the approval of your doctor. In the event of worsening symptoms or concerns about side effects, contact your doctor immediately. 3. Utilize new healthy coping skills, anger management skills, and stress management skills learned during your hospitalization. Journal feelings and process them with a support person. Identify stressors or situations that may result in relapse, deterioration or inappropriate behaviors and develop a plan to deal with those issues. 4. If your coping skills are ineffective and you are in crisis, contact your outpatient providers for direction. If unable to reach your providers, please call the [facility] CRISIS LINE AT , go to the [facility] walk-in center at [address], [place], or go to the closest Emergency Room. 5. Avoid alcohol and un-prescribed drugs. 6. You have been provided with the Mental Health Advance Directives Pamphlet for your review. 7. Your condition is stable for discharge to outpatient level of care, but recovery is an ongoing process. Ifthoughts to harm yourself or others return, follow the safety plan developed during your stay. Planning for a safe return home includes securing weapons. Our treatment team recommends weaponsbe removed from the home until your outpatient provider reassesses your progress. In rare cases where the items themselvescannot be removed, guns and ammunitionshould be secured separatelyand keys stored by a reliable personoutside of the home. If you were admitted on an involuntary commitment, the police or other legal authorities may be involved in this process. AFTERCARE APPOINTMENTS: * Please call your insurance company prior to your scheduled appointment to confirm your aftercare providers are covered. Take your insurance information to your appointments. WHO TO CALL AND WHEN: Medical Emergencies: For questions or emergencies related to your hospital stay, please contact the Inpatient Behavioral Health Unit at [phone]. A rubber gasket inspector trimmer is on-call 15/09 for the Behavioral Health Unit for emergencies At any time you feel your situation is an emergency, you may also call 911 immediately. Addtl Sap Senior Developer Provider Instructions: Your stitches will need to be removed between 11/14-11/16/20. You can return to the emergency department to have this done, given recent wait times in the emergency room it is recommended that you come early in the morning or call ahead to assess wait times. You would have the option of having them removed by your primary care provider if more convenient. per the emergency department: Proper wound care is essential for adequate wound healing and infection prevention. You can shower and clean the wound with soap and water. Do not scour over the wound, pat dry with a towel. Do not submerse the wound (i.e. bathe or dish wash) until the sutures have been removed. You can use an antibiotic ointment with a dressing over the wound for the next 3-4 days. After this time you may leave the wound dry and open to the air. If crust develops over the wou nd you can use a Q-tip to apply a 1:1 peroxide:water solution to clean the wound. Look for signs of infection of the wound including: increased pain, swelling, foul discharge, streaking, or increased temperature. If any of these are noticed you should return to the Emergency Department for further assessment and treatment. Pending Studies at Discharge: No Stand-Alone Forms: Trenergi, Smoking Cessation Medications and DC Order Prescriptions: Continued buprenorphine-naloxone 8-2 mg film 1 tab Sublingual BID RF: 0 topiramate [Topamax] 50 mg Tablet 100 mg PO DAILY RF: 0 Discharge Orders: Discharge Order (Routine); Ordered 11/06/20 Ordered By: Kia Johnson Admission Data Admit Date/Time: 11/05/20 05:26 Attending Provider: Kia Johnson Admit Provider: Kia Johnson Primary Care Provider: Jaime Villarreal Coding Level of Care Code 51221 D/C day mgmt > 30 min Diagnoses Opiate dependence F11.20 Bipolar II disorder with or without full interepisode recovery F31.81
== END 2020-11-06 11:50 | disposition home or self-care (01) | DRG 885 ==
LOC: ED 22:39 → 3S 11-05 05:26